=== PATIENT | female | born 1960 | race Caucasian/White ===

== ENCOUNTER 2016-06-19 10:15 | Emergency (ER) | payer OTHER ==
[2016-06-19 10:23] VITALS: BP 123/87; PULSE 69; TEMP 98.1; BMI 21.4
--- NOTE | 2016-06-19 10:37 | PDOC ---
History of Present Illness - General Chief Complaint: Injury Stated Complaint: RIGHT ELBOW LAC, S/P SLIP AND FALL Time Seen by Provider: 06/19/16 10:17 History Source: Patient Exam Limitations: No Limitations - History of Present Illness Initial Comments: 56 yo F presents with R elbow laceration after a mechanical slip and fall on black ice. She states that she felt a little pain, but when she arrived at her appointment, her therapist looked at the wound and suggested that she seek evaluation, as it appeared to need stitches. No other injuries. She denies any pain at present. No weakness or numbness. Able to move her elbow without difficulty. Past History - Past Medical History Allergies/Adverse Reactions: Allergies Allergy/AdvReac Type Severity Reaction Status Date / Time No Known Allergies Allergy Verified 06/19/16 10:17 Home Medications: Ambulatory Orders NK [No Known Home Medication] 06/19/16 Other medical history: DENIES - Psycho/Social/Smoking Cessation Hx Anxiety: No Suicidal Ideation: No Smoking History: Never smoked Hx Alcohol Use: No Drug/Substance Use Hx: No Substance Use Type: None Review of Systems - Review of Systems Able to Perform ROS?: Yes Comments:: GENERAL/CONSTITUTIONAL: No fever or chills. No weakness. HEAD, EYES, EARS, NOSE AND THROAT: No change in vision. No ear pain or discharge. No sore throat. MUSCULOSKELETAL: No joint or muscle swelling or pain. No neck or back pain. SKIN: No rash. +R elbow lac. NEUROLOGIC: No headache, vertigo, loss of consciousness, or change in strength/ sensation. HEMATOLOGIC/LYMPHATIC: No anemia, easy bleeding, or history of blood clots. *Physical Exam - Vital Signs Last Vital Signs Temp Pulse Resp BP Pulse Ox 98.1 F 69 18 123/87 100 06/19/16 10:15 06/19/16 10:15 06/19/16 10:15 06/19/16 10:15 06/19/16 10:15 - Physical Exam Comments: GENERAL: Awake, alert, and fully oriented, in no acute distress HEAD: No signs of trauma EXTREMITIES: R elbow edematous, no bony tenderness, with overlying laceration 2cm, with devitalized skin flap. Remainder of extremities with normal range of motion, no edema. No clubbing or cyanosis. No cords, erythema, or tenderness NEUROLOGICAL: Cranial nerves II through XII grossly intact. Normal speech, normal gait SKIN: Warm, Dry, normal turgor, no rashes or lesions noted. Procedures - Laceration/Wound Repair Right Posterior Elbow Wound Length: to 2.5 cm Wound Explored: clean, no foreign body present Wound's Depth, Shape: irregular, flap, contused tissue Irrigated w/ Saline: Yes Anesthesia: 1% Lidocaine Amount of Anesthetic (ccs): 2 Wound Debrided: moderate Wound Repaired With: Sutures Suture Size/Type: 3:0, nylon Number of Sutures: 4 Layer Closure: No Sterile Dressing Applied: Yes Sling Applied: Yes *DC/Admit/Observation/Transfer Diagnosis at time of Disposition: Laceration of elbow Qualifiers: Encounter type: initial encounter Laterality: right Qualified Code(s): S51.011A - Laceration without foreign body of right elbow, initial encounter - Discharge Dispostion Disposition: HOME Condition at time of disposition: Stable Admit: No - Patient Instructions Printed Discharge Instructions: How to Use a Sling, DI for Laceration Repair - - Simple Additional Instructions: KEEP THE WOUND DRY FOR FIRST 48 HOURS. AFTER THAT IT IS OK TO GET WET. NO LOTIONS, CREAMS, OINTMENTS, OR SOAPS. RETURN TO THE ER OR TO YOUR PRIMARY CARE PHYSICIAN BETWEEN 06/28-06/30 TO HAVE SUTURES REMOVED. RETURN TO THE ER IMMEDIATELY IF SEVERE PAIN, SWELLING, REDNESS , OR DRAINAGE OF PUS.
[2016-06-19] MEDS ORDERED: DIPHTH,PERTUSS(ACELL),TET 0.5 ML DISP.SYRIN IM ONE (10:39)
== END 2016-06-19 11:46 | disposition home or self-care (01) ==
LOC: FER 10:15
PROC: 0HQDXZZ Repair Right Lower Arm Skin, External Approach (ICD-10-PCS; principal; 2016-06-19)
DX: S51.011A Laceration without foreign body of right elbow, initial encounter (principal); W00.0XXA Fall on same level due to ice and snow, initial encounter; Y93.9 Activity, unspecified; Y92.410 Unspecified street and highway as the place of occurrence of the external cause
CPT/HCPCS: 73070-TC-RT; 90715; 99283-25